=== PATIENT | male | born 1960 | race Caucasian/White ===

== ENCOUNTER 2017-08-02 15:58 | Observation (INO) | payer SELFPAY ==
[~2017-08-02] VITALS: Ht 177.8 cm; Wt 123.0 kg
[~2017-08-02 15:58] MED LIST: METFORMIN HCL500 M1 PO; PROZAC40 MG PO
[2017-08-02 16:44] LABS: HEMATOCRIT 40.1 % (38.0-50.0); HEMOGLOBIN 13.7 G/DL (12.5-16.6); MCH 28.2 PG (29.0-34.0); MCHC 34.2 G/DL (30.0-36.0); MCV 82.7 FL (86-99); PLATELET COUNT 274 K/uL (156-360); RBC DIS.WIDTH-CV 13.8 % (11.8-14.6); RBC DIS.WIDTH-SD 41.3 % (39-53); RED BLOOD COUNT 4.85 M/uL (4.00-5.50); WHITE BLOOD COUNT 7.4 K/uL (4.1-10.2)
[2017-08-02 16:50] LABS: INTER. NORMALIZED RATIO 1.1
[2017-08-02 16:52] LABS: PTT 32.3 SEC (25-37)
[2017-08-02 16:53] LABS: CHLORIDE 99 mEq/L (99-109); SODIUM 137 mEq/L (136-147)
[2017-08-02 16:54] LABS: GLUCOSE 249 mg/dL (70-99)
[2017-08-02 16:58] LABS: CREATININE 1.1 mg/dL (0.6-1.3); GFR ESTIMATE (CALCULATED) > 59 mL/min/ (58.99-99999)
[2017-08-02 16:59] LABS: UREA NITROGEN (BUN) 11 mg/dL (9-23)
[2017-08-02 17:05] LABS: TROP-I INTERPRETATION NEGATIVE; TROPONIN-I < 0.01 ng/mL (0.0-0.30)
[2017-08-02] MEDS ORDERED: AMARYL4 MG PO (20:43)
[2017-08-02] MEDS ORDERED: VITAMIN B-121000 MC1 SL (20:43)
[2017-08-02] MEDS ORDERED: TYLENOL ARTHRI650 MG PO (20:44)
[2017-08-02] MEDS ORDERED: GABAPENTIN300 MG PO ×2 (20:45)
[2017-08-02] MEDS ORDERED: DICLOFENAC SODI75 MG PO (20:46)
[2017-08-02] MEDS ORDERED: FARXIGA5 MG PO (20:46)
[2017-08-02] MEDS ORDERED: CRESTOR20 MG PO (20:47)
[2017-08-02 21:20] LABS: ALBUMIN 4.2 g/dL (3.2-4.8)
[2017-08-02 21:23] LABS: TOTAL PROTEIN 8.2 g/dL (6.4-8.3)
[2017-08-02 21:24] LABS: TOTAL BILIRUBIN 0.4 mg/dL (0.0-1.0)
[2017-08-02 21:25] LABS: ALKALINE PHOSPHATASE 99 IU/L (3-129)
[2017-08-02 21:28] LABS: ALT (GPT) 19 IU/L (3-49); AST (GOT) 15 IU/L (2-34); DIRECT BILIRUBIN 0.1 mg/dL (0.0-0.3)
[2017-08-02 21:58] VITALS: BP 140/67
[2017-08-02 23:24] LABS: TROP-I INTERPRETATION NEGATIVE; TROPONIN-I < 0.01 ng/mL (0.0-0.30)
[2017-08-03 04:05] VITALS: BP 100/51
[2017-08-03 05:50] LABS: TROP-I INTERPRETATION NEGATIVE; TROPONIN-I < 0.01 ng/mL (0.0-0.30)
[2017-08-03 06:13] LABS: HDL CHOLESTEROL 28 MG/DL (Desirable>=40); NON-HDL CHOLESTEROL 191 mg/dL (Desirable<160); TOTAL CHOLESTEROL 219 mg/dL (Desirable<200)
[2017-08-03 06:14] LABS: TRIGLYCERIDES 1181 MG/DL (Normal: <150)
[2017-08-03 07:10] VITALS: BP 102/56
[2017-08-03] MEDS ORDERED: ASPIRIN81 M2 PO (08:50)
[2017-08-03] MEDS ORDERED: NITROSTAT0.4 MG SL (08:50)
[2017-08-03] MEDS ORDERED: LOPRESSOR25 MG PO (08:50)
[2017-08-03] MEDS ORDERED: FAMOTIDINE20 MG PO (08:50)
[2017-08-03] MEDS ORDERED: ATORVASTATIN CA80 MG PO (08:50)
[2017-08-03] MEDS ORDERED: GLUCOPHAGE500 MG PO (08:50)
== END 2017-08-03 12:11 | disposition home or self-care (01) ==
LOC: EME 15:58 → 4SOUTH 20:15 → EDOF 20:15 → ENRESERV 20:16 → 4SOUTH 21:39 → ENPENDDIS 08-03 → 4SOUTH 08-03 12:11
PROVIDERS: Internal Medicine; Physician Assistant Medical
DX: R07.9 Chest pain, unspecified (principal); I10 Essential (primary) hypertension; E78.5 Hyperlipidemia, unspecified; Z91.14 Patient's other noncompliance with medication regimen; Z91.19 Patient's noncompliance with other medical treatment and regimen; E11.65 Type 2 diabetes mellitus with hyperglycemia; I25.10 Atherosclerotic heart disease of native coronary artery without angina pectoris; G89.29 Other chronic pain; M54.17 Radiculopathy, lumbosacral region; F32.9 Major depressive disorder, single episode, unspecified; F41.9 Anxiety disorder, unspecified; E66.01 Morbid (severe) obesity due to excess calories; Z68.38 Body mass index [BMI] 38.0-38.9, adult; G47.33 Obstructive sleep apnea (adult) (pediatric); Z87.442 Personal history of urinary calculi; Z82.49 Family history of ischemic heart disease and other diseases of the circulatory system; Z79.84 Long term (current) use of oral hypoglycemic drugs
CPT/HCPCS: 70450; 71046; 80048; 80061; 80076; 82150; 82948; 83690; 84484; 85027; 85379; 85610; 85730; 93005; 99281; 99285; G0378; J1650; J1815

== ENCOUNTER 2017-08-23 18:24 | Observation (INO) | payer SELFPAY ==
[~2017-08-23] VITALS: Ht 180.3 cm; Wt 122.2 kg
[~2017-08-23 18:24] MED LIST changes: +AMARYL4 MG PO; +ASPIRIN81 M2 PO; +ATORVASTATIN CA80 MG PO; +CRESTOR20 MG PO; +DICLOFENAC SODI75 MG PO; +FAMOTIDINE20 MG PO; +FARXIGA5 MG PO; +GABAPENTIN300 MG PO; +GLUCOPHAGE500 MG PO; +LOPRESSOR25 MG PO; +NITROSTAT0.4 MG SL; +TYLENOL ARTHRI650 MG PO; +VITAMIN B-121000 MC1 SL
[2017-08-23 19:15] LABS: BASOPHIL (%) 0.7 % (0-1); BASOPHIL COUNT 0.1 K/uL (0-0.1); EOSINOPHIL (%) 1.2 % (0-5); EOSINOPHIL COUNT 0.1 K/uL (0-0.3); HEMATOCRIT 39.7 % (38.0-50.0); HEMOGLOBIN 13.4 G/DL (12.5-16.6); IMMATURE GRANULOCYTE (%) 0.4 % (0.0-0.7); LYMPHOCYTE (%) 27.8 % (15-42); LYMPHOCYTE COUNT 2.3 K/uL (1.0-2.8); MCH 27.8 PG (29.0-34.0); MCHC 33.8 G/DL (30.0-36.0); MCV 82.4 FL (86-99); MONOCYTE (%) 6.1 % (3-12); MONOCYTE COUNT 0.5 K/uL (0-0.8); NEUTROPHIL (%) 63.8 % (45-76); NEUTROPHIL COUNT 5.3 K/uL (1.8-6.4); PLATELET COUNT 289 K/uL (156-360); RBC DIS.WIDTH-CV 13.5 % (11.8-14.6); RBC DIS.WIDTH-SD 40.2 % (39-53); RED BLOOD COUNT 4.82 M/uL (4.00-5.50); WHITE BLOOD COUNT 8.3 K/uL (4.1-10.2)
[2017-08-23 19:35] LABS: ALBUMIN 3.9 g/dL (3.2-4.8)
[2017-08-23 19:36] LABS: CHLORIDE 102 mEq/L (99-109); POTASSIUM 3.8 mEq/L (3.7-5.4); SODIUM 137 mEq/L (136-147)
[2017-08-23 19:37] LABS: TROP-I INTERPRETATION NEGATIVE; TROPONIN-I < 0.01 ng/mL (0.0-0.30)
[2017-08-23 19:38] LABS: GLUCOSE 224 mg/dL (70-99); TOTAL PROTEIN 7.5 g/dL (6.4-8.3)
[2017-08-23 19:40] LABS: TOTAL BILIRUBIN 0.3 mg/dL (0.0-1.0)
[2017-08-23 19:41] LABS: ALKALINE PHOSPHATASE 91 IU/L (3-129); GFR ESTIMATE (CALCULATED) > 59 mL/min/ (58.99-99999)
[2017-08-23 19:43] LABS: AST (GOT) 14 IU/L (2-34); UREA NITROGEN (BUN) 8 mg/dL (9-23)
[2017-08-23 19:44] LABS: ALT (GPT) 20 IU/L (3-49)
[2017-08-23 22:16] VITALS: BP 127/72
[2017-08-24 02:49] LABS: TROP-I INTERPRETATION NEGATIVE; TROPONIN-I < 0.01 ng/mL (0.0-0.30)
[2017-08-24 04:58] VITALS: BP 121/66
[2017-08-24 07:13] VITALS: BP 111/65
[2017-08-24 08:00] VITALS: BP 111/65
[2017-08-24 09:02] LABS: TROP-I INTERPRETATION NEGATIVE; TROPONIN-I < 0.01 ng/mL (0.0-0.30)
[2017-08-24 10:51] VITALS: BP 115/66
[2017-08-24] MEDS ORDERED: SERTRALINE HCL25 MG PO (13:21)
[2017-08-24] MEDS ORDERED: NEURONTIN100 MG PO (14:47)
[2017-08-24 15:14] VITALS: BP 130/77
[2017-08-24 19:00] VITALS: BP 127/72
== END 2017-08-24 22:37 ==
LOC: EME 18:24 → 4SOUTH 21:08 → EDOF 21:08 → ENRESERV 21:17 → 4SOUTH 22:04
PROVIDERS: Emergency Medicine; Hospitalist; Physician Assistant
DX: R07.89 Other chest pain (principal); F33.9 Major depressive disorder, recurrent, unspecified; E78.5 Hyperlipidemia, unspecified; E78.1 Pure hyperglyceridemia; E11.9 Type 2 diabetes mellitus without complications; I10 Essential (primary) hypertension; E66.01 Morbid (severe) obesity due to excess calories; I25.10 Atherosclerotic heart disease of native coronary artery without angina pectoris; Z91.14 Patient's other noncompliance with medication regimen; Z91.19 Patient's noncompliance with other medical treatment and regimen; M50.122 Cervical disc disorder at C5-C6 level with radiculopathy; Z82.49 Family history of ischemic heart disease and other diseases of the circulatory system; Z82.3 Family history of stroke; Z79.82 Long term (current) use of aspirin; Z79.84 Long term (current) use of oral hypoglycemic drugs
CPT/HCPCS: 70551; 71046; 72141; 80053; 82948; 84484; 85025; 90839; 93005; 99281; 99285; G0378; J1644; J1815; J2060

== ENCOUNTER 2017-08-24 18:40 | Inpatient (IN) | payer SELFPAY ==
[~2017-08-24] VITALS: Ht 180.3 cm; Wt 118.4 kg
[~2017-08-24 18:40] MED LIST changes: +NEURONTIN100 MG PO; +SERTRALINE HCL25 MG PO
[2017-08-24 23:00] VITALS: BP 127/78
[2017-08-25 08:35] VITALS: BP 114/73
[2017-08-25 16:58] VITALS: BP 100/52
[2017-08-26 08:28] VITALS: BP 126/64
[2017-08-26 16:07] VITALS: BP 106/58
[2017-08-27 08:39] VITALS: BP 134/74
[2017-08-27 15:55] VITALS: BP 119/69
[2017-08-28 07:38] VITALS: BP 124/72
[2017-08-28] MEDS ORDERED: SERTRALINE HCL100 MG PO (09:52)
== END 2017-08-28 12:07 | disposition home or self-care (01) | DRG 885 ==
LOC: 1WEST 18:40
DX: F33.9 Major depressive disorder, recurrent, unspecified (principal); R45.851 Suicidal ideations; Z91.5 Personal history of self-harm; Z91.19 Patient's noncompliance with other medical treatment and regimen; E11.9 Type 2 diabetes mellitus without complications; E66.9 Obesity, unspecified; Z68.37 Body mass index [BMI] 37.0-37.9, adult; I10 Essential (primary) hypertension; I25.10 Atherosclerotic heart disease of native coronary artery without angina pectoris; E78.5 Hyperlipidemia, unspecified; G89.29 Other chronic pain
CPT/HCPCS: 97150 GO; 97165 GO

== ENCOUNTER 2017-10-13 18:10 | Emergency (ER) | payer OTHER ==
[~2017-10-13] VITALS: Ht 180.3 cm; Wt 110.0 kg
[~2017-10-13 18:10] MED LIST changes: +SERTRALINE HCL100 MG PO
[2017-10-13] MEDS ORDERED: MOTRIN600 MG PO (21:14)
[2017-10-13] MEDS ORDERED: SKELAXIN800 MG PO (21:14)
[2017-10-13] MEDS ORDERED: NORCO 5/3251 TABLET PO (21:14)
[2017-10-13 21:44] VITALS: BP 145/71
== END 2017-10-13 21:45 | disposition home or self-care (01) ==
LOC: EME 18:10
DX: S16.1XXA Strain of muscle, fascia and tendon at neck level, initial encounter (principal); V85.5XXA Driver of special construction vehicle injured in nontraffic accident, initial encounter; E11.9 Type 2 diabetes mellitus without complications; F41.9 Anxiety disorder, unspecified; Z87.442 Personal history of urinary calculi
CPT/HCPCS: 72125; 99281; 99284

== ENCOUNTER 2017-10-19 13:58 | Emergency (ER) | payer OTHER ==
[~2017-10-19] VITALS: Ht 180.3 cm; Wt 122.0 kg
[~2017-10-19 13:58] MED LIST changes: +MOTRIN600 MG PO; +NORCO 5/3251 TABLET PO; +SKELAXIN800 MG PO
[2017-10-19 15:39] LABS: HEMATOCRIT 38.1 % (38.0-50.0); MCH 27.4 PG (29.0-34.0); MCHC 34.1 G/DL (30.0-36.0); MCV 80.4 FL (86-99); PLATELET COUNT 240 K/uL (156-360); RBC DIS.WIDTH-CV 13.6 % (11.8-14.6); RBC DIS.WIDTH-SD 39.7 % (39-53); RED BLOOD COUNT 4.74 M/uL (4.00-5.50); WHITE BLOOD COUNT 8.3 K/uL (4.1-10.2)
[2017-10-19 15:48] LABS: ALBUMIN 3.7 g/dL (3.2-4.8); CHLORIDE 97 mEq/L (99-109); SODIUM 132 mEq/L (136-147)
[2017-10-19 15:51] LABS: GLUCOSE 323 mg/dL (70-99); TOTAL PROTEIN 7.2 g/dL (6.4-8.3)
[2017-10-19 15:52] LABS: TOTAL BILIRUBIN 0.4 mg/dL (0.0-1.0)
[2017-10-19 15:54] LABS: ALKALINE PHOSPHATASE 94 IU/L (3-129); GFR ESTIMATE (CALCULATED) > 59 mL/min/ (58.99-99999)
[2017-10-19 15:55] LABS: UREA NITROGEN (BUN) 13 mg/dL (9-23)
[2017-10-19 15:56] LABS: AST (GOT) 17 IU/L (2-34)
[2017-10-19 15:57] LABS: ALT (GPT) 17 IU/L (3-49)
[2017-10-19 16:00] LABS: TROP-I INTERPRETATION NEGATIVE; TROPONIN-I < 0.01 ng/mL (0.0-0.30)
[2017-10-19] MEDS ORDERED: TYLENOL REGULA325 MG PO (18:34)
[2017-10-19] MEDS ORDERED: FLEXERIL10 MG PO (18:34)
[2017-10-19 18:59] VITALS: BP 174/89
== END 2017-10-19 19:10 | disposition home or self-care (01) ==
LOC: EME 13:58
PROVIDERS: Emergency Medicine
DX: S06.0X0A Concussion without loss of consciousness, initial encounter (principal); M54.16 Radiculopathy, lumbar region; R10.30 Lower abdominal pain, unspecified; E11.9 Type 2 diabetes mellitus without complications; R20.0 Anesthesia of skin; F41.9 Anxiety disorder, unspecified; V68.0XXA Driver of heavy transport vehicle injured in noncollision transport accident in nontraffic accident, initial encounter; Y92.410 Unspecified street and highway as the place of occurrence of the external cause
CPT/HCPCS: 70450; 71045; 74177; 80053; 81003; 82948; 84484; 85027; 93005; 99281; 99285